=== PATIENT | male | born 1990 | race Caucasian/White ===

== ENCOUNTER → 2016-06-02 | Emergency (ER) | payer MEDICAID ==
[~2016-06-02] VITALS: Ht 180.3 cm; Wt 190.0 kg
[~2016-06-02] MED LIST: AC325T PO; ACET1TAB43 PO; ALBU6.7H IH; ASPI1TAB22 PO; AZIT250T81 PO; BENZ150C4 PO; CELE-63 PO; CODE-54 PO; CPR500T PO; CRV6.25T PO; CYCL10TA45 PO; DULO20CA PO; DULO30CA46 PO; DULO60CA7 PO; GBPN300C PO; HYDR-3702 PO; KETO10TA PO; KETOROLAC 60 MG/2 ML (TORADOL) VIAL IM ONE; LORA1TAB PO; MORP1CAP12 PO; MORP1CAP13 PO; MORP1CAP15 PO; ONDA4TAB8 PO; PANT40TA3 PO; PHEN15CA67 PO; SUMA100T3 PO; TOPI-27 PO; TOPI100T38 PO; TOPI50TA5 PO; TRAZ100T92 PO; ZALE10CA PO
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
--- NOTE | 2016-06-02 14:04 | Diagnostic Imaging Report ---
INDICATION: Right knee pain, no known injury. DISCUSSION: Three views of the right knee were obtained, no comparison. No acute fracture, dislocation, or other osseous abnormality identified. No significant degenerative disease. Alignment is anatomic. Soft tissues are unremarkable. IMPRESSION: 1. Negative right knee. Dictated by: Dictated on workstation # [id number]
[2016-06-02 18:09] VITALS: BP 140/68
== END | disposition home or self-care (01) ==
LOC: EDUNIT# 13:16 → ED 13:19
DX: M25.561 Pain in right knee (principal)
CPT/HCPCS: 73562; 96372; 99282; J1885; 99283

== ENCOUNTER 2016-06-19 17:03 | Emergency (ER) | payer MEDICAID ==
[~2016-06-19] VITALS: Ht 180.3 cm; Wt 186.0 kg
[~2016-06-19 17:03] MED LIST changes: -ALBU6.7H IH; -AZIT250T81 PO; -BENZ150C4 PO; -KETOROLAC 60 MG/2 ML (TORADOL) VIAL IM ONE; -LORA1TAB PO; -MORP1CAP13 PO; -MORP1CAP15 PO; -PHEN15CA67 PO; -SUMA100T3 PO
--- NOTE | 2016-06-19 18:49 | NUR ---
STATES HE ALSO HAS A CHEST COLD W/COUGHING VERY HARD. CL
[2016-06-19 19:25] LABS: BASOPHILS % (AUTO) 0 % (0-2); EOSINOPHILS # (AUTO) 0.3 10^3uL; EOSINOPHILS % (AUTO) 5 % (0-4); LYMPHOCYTES # (AUTO) 2.4 X10^3; MEAN CORPUSCULAR HEMOGLOBIN 27.3 PG (26.0-34.0); MEAN CORPUSCULAR HGB CONC 32.8 g/dL (31.0-37.0); MEAN CORPUSCULAR VOLUME 83 FL (80-100); MEAN PLATELET VOLUME 11.8 FL (6.0-9.5); MONOCYTES # (AUTO) 0.7 X10^3; MONOCYTES % (AUTO) 10 % (3-11); NEUTROPHILS # (AUTO) 3.4 X10^3; NEUTROPHILS % (AUTO) 50 % (51-67); PLATELET COUNT 191 10^3uL (150-450); WHITE BLOOD COUNT 6.85 10^3uL (4.0-11.0)
[2016-06-19 19:36] LABS: ALBUMIN 4.4 g/dL (3.4-5.0); ANION GAP 17.1 MEQ/L (3-15); CALCULATED IONIZED CALCIUM 3.7 mg/dL (3.8-4.6)
[2016-06-19 19:42] LABS: INFLUENZA VIRUS TYPE A ANTIBOD Negative (NEGATIVE); INFLUENZA VIRUS TYPE B ANTIBOD Negative (NEGATIVE)
--- NOTE | 2016-06-19 20:34 | Diagnostic Imaging Report ---
INDICATION: Cough. Comparison with 12/06/2015. FINDINGS: The lungs are well-aerated. There are no infiltrates. No masses. No hilar adenopathy. The heart is upper limits of normal in size. No evidence of pulmonary edema. No pneumothorax or pleural effusion. IMPRESSION: PA and lateral chest with no acute changes when compared with the previous exam. Dictated by: Dictated on workstation # [id number]
[2016-06-19] MEDS ORDERED: AZIT250T81 PO (21:18)
[2016-06-19] MEDS ORDERED: ED- AZITHROMYCIN 250 MG (ZITHROMAX) 3 TABLETS/BTL PO ONE (21:20)
[2016-06-19 21:29] VITALS: BP 138/90
[2016-06-30] MEDS ORDERED: SUMA100T3 PO (00:11)
[2016-06-30] MEDS ORDERED: BENZ150C4 PO (00:11)
[2016-06-30] MEDS ORDERED: ALBU6.7H IH (00:11)
[2016-06-30] MEDS ORDERED: MORP1CAP13 PO (00:11)
== END 2016-06-19 21:30 | disposition home or self-care (01) ==
LOC: ED 17:05
DX: J15.7 Pneumonia due to Mycoplasma pneumoniae (principal); Z87.891 Personal history of nicotine dependence
CPT/HCPCS: 36415; 71020; 80053; 85025; 87400; A9270; 87502; 99282; 99283

== ENCOUNTER 2016-06-29 23:55 | Emergency (ER) | payer MEDICAID ==
[~2016-06-29] VITALS: Ht 180.3 cm; Wt 186.3 kg
--- NOTE | 2016-06-30 00:15 | NUR ---
PT WANTS TO STAY IN W/C D/T BACK PAIN. CALL LIGHT GIVEN TO PT
[2016-06-30] MEDS ORDERED: HYDROmorphone 2 MG/ML (DILAUDID) 1 ML SYRINGE IM ONE (00:50)
[2016-06-30] MEDS ORDERED: ORPHENADRINE 60 MG/2 ML (NORFLEX) AMP IM ONE (00:50)
[2016-06-30] MEDS ORDERED: ED- CYCLOBENZAPRINE 10 MG (FLEXERIL) 3 TABLETS/BTL PO ONE (01:15)
[2016-06-30 01:30] VITALS: BP 107/70
--- NOTE | 2016-06-30 01:30 | NUR ---
norflex and dilaudid were given im so no start/stop times on iv
--- NOTE | 2016-06-30 01:30 | NUR ---
PATIENT SAID TO RN THAT THE PEOPLE THAT HE AND HIS ARE WITH (THEY WERE OUT IN [facility]) HAVE BEEN ASKING HIM FOR TYLENOL WITH CODIENE AND OTHER MEDS. BOTH PT AND REPORT THAT THEY ARE KEEPING THEIR MEDS LOCKED UP AND THAT THEY WILL BE ASKING THESE PEOPLE TO MOVE OUT TOMORROW BECAUSE THEY FILL LIKE THEY ARE BEING TAKEN ADVANTAGE OF. RN ENC THEM THAT IF THEY HAD ANY PROBLEMS TO NOTIFY THE [place] [employer]. THEY REPORT THEY WILL AND HAVE BEFORE. DECLINE ANY REFERRAL AT THIS TIME
== END 2016-06-30 01:39 | disposition home or self-care (01) ==
LOC: ED 23:56
DX: M54.5 Low back pain (principal); M54.89 Other dorsalgia; M79.1 Myalgia
CPT/HCPCS: 96372; 99282; A9270; J1170; J2360

== ENCOUNTER 2016-07-18 00:20 | Emergency (ER) | payer MEDICAID ==
[~2016-07-18] VITALS: Ht 180.3 cm; Wt 182.3 kg
[2016-07-18] MEDS ORDERED: LORazepam 2 MG/ML (ATIVAN) 1 ML VIAL IV ONE (00:35)
[2016-07-18 01:06] LABS: BASOPHILS % (AUTO) 0 % (0-2); EOSINOPHILS # (AUTO) 0.1 10^3uL; EOSINOPHILS % (AUTO) 1 % (0-4); LYMPHOCYTES # (AUTO) 3.2 X10^3; MEAN CORPUSCULAR HEMOGLOBIN 27.8 PG (26.0-34.0); MEAN CORPUSCULAR HGB CONC 33.3 g/dL (31.0-37.0); MEAN CORPUSCULAR VOLUME 84 FL (80-100); MEAN PLATELET VOLUME 12.3 FL (6.0-9.5); MONOCYTES % (AUTO) 10 % (3-11); NEUTROPHILS # (AUTO) 5.5 X10^3; NEUTROPHILS % (AUTO) 56 % (51-67); PLATELET COUNT 203 10^3uL (150-450); WHITE BLOOD COUNT 9.83 10^3uL (4.0-11.0)
[2016-07-18 01:16] LABS: ALBUMIN 4.5 g/dL (3.4-5.0); ANION GAP 16.5 MEQ/L (3-15); CALCULATED IONIZED CALCIUM 3.9 mg/dL (3.8-4.6); TOTAL PROTEIN 8.1 g/dL (6.4-8.5)
[2016-07-18 01:32] LABS: BILIRUBIN,URINE Negative (Negative); CLARITY,URINE Clear; COLOR,URINE Yellow; GLUCOSE, URINE (UA) Negative (Negative); LEUKOCYTE ESTERASE ,URINE Negative (Negative); PH,URINE 5.5 (5.0 - 8.0); UROBILINOGEN,URINE 0.2 mg/dL (0.2-1.0)
[2016-07-18 01:39] LABS: AMPHETAMINE SCREEN, URINE Positive (Negative); CANNABINOID SCREEN, URINE Negative (Negative); METHAMPHETAMINE SCREEN URINE S NEGATIVE (NEGATIVE); OPIATE SCREEN URINE Positive (Negative); PROPOXYPHENE STAT NEGATIVE (NEGATIVE)
--- NOTE | 2016-07-18 02:01 | NUR ---
Assisted patient into wheel chair. He was able to move legs off bed and transfer by himself to the wheel chair. Moved right leg by himself and no weakness to right side noted with transferring from bed to chair or from wheel chair to car. Denies any pain or needs.
[2016-07-18 03:25] VITALS: BP 122/60
== END 2016-07-18 02:03 | disposition home or self-care (01) ==
LOC: ED 00:22
DX: G40.909 Epilepsy, unspecified, not intractable, without status epilepticus (principal)
CPT/HCPCS: 36415; 80053; 81003; 85025; 96374; 99284; G0478; J2060; 80307; 99283

== ENCOUNTER 2016-07-18 13:00 | Outpatient (RCR) | payer MEDICAID ==
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
[~2016-07-18 13:00] MED LIST changes: +ALBU6.7H IH; +AZIT250T81 PO; +BENZ150C4 PO; +MORP1CAP13 PO; +SUMA100T3 PO; -TOPI50TA5 PO; +TOPI50TA86 PO
[2016-07-23] MEDS ORDERED: CYCL10TA45 PO (16:17)
[2016-07-23] MEDS ORDERED: PHEN15CA67 PO (16:17)
[2016-07-23] MEDS ORDERED: LORA1TAB PO (17:22)
[2016-08-18] MEDS ORDERED: MORP1CAP15 PO (20:27)
[2016-09-13] MEDS ORDERED: MORP1CAP16 PO (23:37)
== END 2016-10-06 | disposition home or self-care (01) ==
LOC: PT 13:00
PROVIDERS: ATTEND Family Medicine
DX: M54.5 Low back pain (principal); M25.562 Pain in left knee; M25.561 Pain in right knee

== ENCOUNTER 2016-07-23 15:28 | Emergency (ER) | payer MEDICAID ==
[~2016-07-23] VITALS: Ht 177.8 cm; Wt 178.0 kg
--- NOTE | 2016-07-23 15:45 | NUR ---
PT VERBALIZES HE IS NOT INCONTINENT OF BOWEL OR BLADDER "I DIDN'T PISS MYSELF". CL
[2016-07-23] MEDS ORDERED: LORazepam 2 MG/ML (ATIVAN) 1 ML VIAL IV ONE (16:15)
[2016-07-23 16:21] LABS: BASOPHILS % (AUTO) 0 % (0-2); EOSINOPHILS # (AUTO) 0.1 10^3uL; EOSINOPHILS % (AUTO) 1 % (0-4); LYMPHOCYTES # (AUTO) 2.5 X10^3; MEAN CORPUSCULAR HEMOGLOBIN 27.7 PG (26.0-34.0); MEAN CORPUSCULAR HGB CONC 33.5 g/dL (31.0-37.0); MEAN CORPUSCULAR VOLUME 83 FL (80-100); MEAN PLATELET VOLUME 12.2 FL (6.0-9.5); MONOCYTES # (AUTO) 0.7 X10^3; MONOCYTES % (AUTO) 9 % (3-11); NEUTROPHILS # (AUTO) 4.2 X10^3; NEUTROPHILS % (AUTO) 55 % (51-67); PLATELET COUNT 220 10^3uL (150-450); WHITE BLOOD COUNT 7.52 10^3uL (4.0-11.0)
--- NOTE | 2016-07-23 16:26 | NUR ---
PT BEGINS TO SHAKE WHILE HANDS BILAT REMAIN ON BILAT RAILS BUT DO NOT MOVE WHILE THE REST OF HIS BODY SHAKES GENTLY. SHAKING LASTS APPX [address] CHEW NOTIFIED O2 SATS DID DROP DURING THIS TIME. PT WAS SHAKING SHORTLY AFTER ARRIVAL ALSO IN SIMILAR FASHION FOR APPX 30 SECS BUT NOT INCONTINENT & IMMED ANSWERS QUESTIONS OF THIS RN. O2 SATS DID NOT DROP DURING FIRST EPISODE IN THIS ED. CL
[2016-07-23 16:28] LABS: ALBUMIN 4.2 g/dL (3.4-5.0); ALKALINE PHOSPHATASE 102 U/L (38-126); ANION GAP 17.6 MEQ/L (3-15); BUN/CREATININE RATIO 12 (10-20); CALCULATED IONIZED CALCIUM 4.1 mg/dL (3.8-4.6); TOTAL PROTEIN 7.5 g/dL (6.4-8.5)
--- NOTE | 2016-07-23 17:25 | NUR ---
PT ON SIX COLOR PRESS OPERATOR & WNL HEART RHYTHMS. STRIPS NOT PRINTED BEFORE PT D/C. CL
[2016-07-23 19:23] VITALS: BP 118/36
== END 2016-07-23 17:44 | disposition home or self-care (01) ==
LOC: ED 15:29
DX: G40.802 Other epilepsy, not intractable, without status epilepticus (principal); Z72.820 Sleep deprivation; F41.9 Anxiety disorder, unspecified
CPT/HCPCS: 36415; 70450; 80053; 84443; 85025; 96374; 99285; G0480; J2060; 80320; 80329; 99283

== ENCOUNTER → 2016-07-23 | Outpatient (CLI) | payer MEDICAID | LOC: EMS 15:25 | PROVIDERS: ATTEND Family Medicine | DX: R56.9 Unspecified convulsions (principal) ==

== ENCOUNTER 2016-08-18 19:57 | Emergency (ER) | payer MEDICAID ==
[~2016-08-18] VITALS: Ht 177.8 cm; Wt 175.8 kg
[2016-08-18] MEDS ORDERED: KETOROLAC 60 MG/2 ML (TORADOL) VIAL IM STA (20:38)
[2016-08-18] MEDS ORDERED: METOCLOPRAMIDE 10 MG/2 ML (REGLAN) VIAL IM STA (20:38)
[2016-08-18] MEDS ORDERED: diphenhydrAMINE 50 MG/ML INJ (BENADRYL) IM SCH (20:40)
[2016-08-18 21:15] VITALS: BP 143/66
--- NOTE | 2016-08-18 21:15 | NUR ---
ALL MEDS WERE GIVEN IM SO NO IV START/STOP TIMES
== END 2016-08-18 21:16 | disposition home or self-care (01) ==
LOC: ED 19:58
DX: S00.01XA Abrasion of scalp, initial encounter (principal); W22.8XXA Striking against or struck by other objects, initial encounter; Y92.009 Unspecified place in unspecified non-institutional (private) residence as the place of occurrence of the external cause; G43.909 Migraine, unspecified, not intractable, without status migrainosus
CPT/HCPCS: 96372; 99282; J1200; J1885; J2765

== ENCOUNTER 2016-08-27 17:33 | Emergency (ER) | payer MEDICAID ==
[~2016-08-27] VITALS: Ht 177.8 cm; Wt 177.0 kg
[~2016-08-27 17:33] MED LIST changes: +LORA1TAB PO; +MORP1CAP15 PO; +PHEN15CA67 PO; +TOPI50TA5 PO; -TOPI50TA86 PO
--- NOTE | 2016-08-27 18:15 | NUR ---
PT requesting pain medication. MD notified.
--- NOTE | 2016-08-27 18:40 | Diagnostic Imaging Report ---
KNEE, RIGHT, 3 VIEWS. COMPARISON: None available. INDICATION: Pain around patella. TECHNIQUE: Non-weight bearing AP, oblique, and lateral views of the right knee. FINDINGS: No fracture or traumatic malalignment. The joint spaces are well maintained. No knee joint effusion. Shadow of the patellar tendon appears normal. IMPRESSION: 1. No acute fracture. Specifically, the patella appears intact. Dictated by: Dictated on workstation # [id number]
[2016-08-27] MEDS ORDERED: HYDROmorphone 2 MG/ML (DILAUDID) 1 ML SYRINGE IV ONE (18:50)
[2016-08-27] MEDS: SODIUM CHLORIDE FLUSH 10 ML SYR IV PRN ×2 (19:00→19:02)
--- NOTE | 2016-08-27 19:03 | Diagnostic Imaging Report ---
PROCEDURE: CT right lower extremity without contrast. TECHNIQUE: Axially acquired CT was obtained through the right lower extremity without intravenous contrast. Coronal and sagittal reformations were also performed. INDICATION: Right knee pain. COMPARISON: Knee radiographs performed earlier same day. FINDINGS: The patellar tendon is intact. Quadriceps insertion on the patella is also normal. The ACL and PCL are grossly normal. No evidence of extruded meniscus. No acute fracture. No knee joint effusion. Patella is normal in alignment. Joint spaces of the knee are well maintained. IMPRESSION: 1. The patella tendon and quadriceps tendon are both intact. 2. No acute fracture. Dictated by: Dictated on workstation # [id number]
[2016-08-27 19:51] VITALS: BP 110/56
== END 2016-08-27 19:52 | disposition home or self-care (01) ==
LOC: ED 17:34
DX: M25.561 Pain in right knee (principal)
CPT/HCPCS: 73562; 73700; 96374; 99283; J1170; 99284

== ENCOUNTER 2016-09-03 20:29 | Emergency (ER) | payer MEDICAID ==
[~2016-09-03] VITALS: Ht 177.8 cm; Wt 177.0 kg
[~2016-09-03 20:29] MED LIST changes: -TOPI50TA5 PO; +TOPI50TA86 PO
[2016-09-03] MEDS ORDERED: ONDANSETRON 4 MG (ZOFRAN) ORAL DISSOLVE TAB PO ONE (20:50)
[2016-09-03] MEDS ORDERED: SODIUM CHLORIDE FLUSH 3 ML SYR IV ONE (20:55)
[2016-09-03] MEDS ORDERED: SODIUM CHLORIDE FLUSH 10 ML SYR IV PRN (20:55)
[2016-09-03] MEDS ORDERED: LORazepam 2 MG/ML (ATIVAN) 1 ML VIAL IV ONE (20:55)
[2016-09-03 21:09] LABS: BASOPHILS % (AUTO) 0 % (0-2); EOSINOPHILS # (AUTO) 0.3 10^3uL; EOSINOPHILS % (AUTO) 3 % (0-4); LYMPHOCYTES # (AUTO) 1.2 X10^3; MEAN CORPUSCULAR HEMOGLOBIN 27.2 PG (26.0-34.0); MEAN CORPUSCULAR HGB CONC 32.3 g/dL (31.0-37.0); MEAN CORPUSCULAR VOLUME 84 FL (80-100); MEAN PLATELET VOLUME 11.5 FL (6.0-9.5); MONOCYTES # (AUTO) 0.9 X10^3; MONOCYTES % (AUTO) 11 % (3-11); NEUTROPHILS % (AUTO) 71 % (51-67); PLATELET COUNT 182 10^3uL (150-450)
[2016-09-03] MEDS ORDERED: ONDANSETRON 2 MG/ML (Z0FRAN) 2 ML VIAL IV ONE (21:10)
[2016-09-03 21:23] LABS: ALBUMIN 4.5 g/dL (3.4-5.0); ANION GAP 19.2 MEQ/L (3-15); CALCULATED IONIZED CALCIUM 3.8 mg/dL (3.8-4.6); TOTAL PROTEIN 8.1 g/dL (6.4-8.5)
--- NOTE | 2016-09-03 22:02 | Diagnostic Imaging Report ---
INDICATION: Abdominal pain. EXAMINATION: PA chest and supine and upright abdominal images were obtained. FINDINGS: Lungs are clear. There is no intraperitoneal free air. Bowel gas pattern is normal. There are no pathologic masses or calcifications. IMPRESSION: No acute abnormalities in the abdomen. Dictated by: Dictated on workstation # [id number]
[2016-09-03 22:07] LABS: BILIRUBIN,URINE Negative (Negative); CLARITY,URINE Clear; COLOR,URINE Yellow; GLUCOSE, URINE (UA) Negative (Negative); LEUKOCYTE ESTERASE ,URINE Negative (Negative); UROBILINOGEN,URINE 0.2 mg/dL (0.2-1.0)
[2016-09-03] MEDS ORDERED: ED- PROMETHAZINE/CODEINE SYRUP 6.25MG-10MG/5 ML (PHENERGAN) 118 ML BTL PO ONE (22:25)
[2016-09-03 22:49] VITALS: BP 133/60
[2016-09-04 00:53] LABS: AMPHETAMINE SCREEN, URINE Positive (Negative); CANNABINOID SCREEN, URINE Negative (Negative); METHAMPHETAMINE SCREEN URINE S NEGATIVE (NEGATIVE); OPIATE SCREEN URINE Positive (Negative); PROPOXYPHENE STAT NEGATIVE (NEGATIVE)
== END 2016-09-03 22:10 | disposition home or self-care (01) ==
LOC: ED 20:32
DX: R11.0 Nausea (principal); J06.9 Acute upper respiratory infection, unspecified; G40.509 Epileptic seizures related to external causes, not intractable, without status epilepticus
CPT/HCPCS: 36415; 74022; 80053; 80307; 81003; 82150; 83690; 84443; 85025; 86140; 96361; 96374; 99284; A9270; J2060; J7030; 99283

== ENCOUNTER → 2016-09-12 | Outpatient (CLI) | payer MEDICAID ==
[~2016-09-12] MED LIST changes: +MORP1CAP16 PO
== END ==
LOC: RAD 07:03
PROVIDERS: ATTEND Family Medicine
DX: Z53.9 Procedure and treatment not carried out, unspecified reason (principal)

== ENCOUNTER 2016-09-13 23:11 | Emergency (ER) | payer MEDICAID ==
[~2016-09-13] VITALS: Ht 180.3 cm; Wt 174.5 kg
[~2016-09-13 23:11] MED LIST changes: -MORP1CAP16 PO
[2016-09-13] MEDS ORDERED: MORP1CAP16 PO (23:37)
--- NOTE | 2016-09-13 23:41 | NUR ---
Patient told me, "I'm scared, I don't feel good." Patient's reported, "They usually give him ativan, that calms him down then he also gets his voice back at the same time." Patient only whispering when talking.
[2016-09-13] MEDS ORDERED: LORazepam 2 MG/ML (ATIVAN) 1 ML VIAL IV ONE (23:45)
[2016-09-13 23:57] LABS: BASOPHILS % (AUTO) 0 % (0-2); EOSINOPHILS # (AUTO) 0.1 10^3uL; EOSINOPHILS % (AUTO) 1 % (0-4); LYMPHOCYTES # (AUTO) 2.6 X10^3; MEAN CORPUSCULAR HEMOGLOBIN 27.2 PG (26.0-34.0); MEAN CORPUSCULAR HGB CONC 32.6 g/dL (31.0-37.0); MEAN CORPUSCULAR VOLUME 83 FL (80-100); MEAN PLATELET VOLUME 11.8 FL (6.0-9.5); MONOCYTES # (AUTO) 0.8 X10^3; MONOCYTES % (AUTO) 8 % (3-11); NEUTROPHILS % (AUTO) 67 % (51-67); PLATELET COUNT 240 10^3uL (150-450); WHITE BLOOD COUNT 10.49 10^3uL (4.0-11.0)
--- NOTE | 2016-09-14 00:06 | NUR ---
came out of room and notified us that patient was having another seizure. Pat, household appliances salesperson and myself went in room, body shaking, not violently but lasted approx. 1 min. When patient stopped, I called his name and he jumped like I started him and was looking around the room at every one with a look of fear on his face. Like he was afraid of something.
[2016-09-14 00:11] LABS: ALBUMIN 4.4 g/dL (3.4-5.0); ANION GAP 18.9 MEQ/L (3-15); CALCULATED IONIZED CALCIUM 3.8 mg/dL (3.8-4.6); TOTAL PROTEIN 8.1 g/dL (6.4-8.5)
[2016-09-14] MEDS ORDERED: LORazepam 2 MG/ML (ATIVAN) 1 ML VIAL IV ONE ×3 (00:15→01:10)
[2016-09-14] MEDS ORDERED: ED- LORAZEPAM 0.5 MG (ATIVAN) 6 TABLETS/BTL PO ONE (02:15)
[2016-09-14 03:12] VITALS: BP 127/55
== END 2016-09-14 02:51 | disposition home or self-care (01) ==
LOC: ED 23:16
DX: G40.509 Epileptic seizures related to external causes, not intractable, without status epilepticus (principal)
CPT/HCPCS: 36415; 80053; 85025; 96374; 96375; 99285; A9270; J2060; 99283

== ENCOUNTER → 2016-09-13 | Outpatient (CLI) | payer MEDICAID | LOC: EMS 23:10 | PROVIDERS: ATTEND Emergency Medicine | DX: R56.9 Unspecified convulsions (principal) ==

== ENCOUNTER 2016-09-16 18:26 | Emergency (ER) | payer MEDICAID ==
[~2016-09-16] VITALS: Ht 180.3 cm; Wt 174.5 kg
[~2016-09-16 18:26] MED LIST changes: +MORP1CAP16 PO
[2016-09-16] MEDS ORDERED: HYDROmorphone 2 MG/ML (DILAUDID) 1 ML SYRINGE IM ONE (18:50)
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
[2016-09-16 20:07] VITALS: BP 128/88
== END 2016-09-16 20:06 | disposition home or self-care (01) ==
LOC: ED 18:28
DX: M25.572 Pain in left ankle and joints of left foot (principal)
CPT/HCPCS: 73610; 96372; 99282; J1170

== ENCOUNTER 2016-09-17 17:40 | Emergency (ER) | payer MEDICAID ==
[~2016-09-17] VITALS: Ht 180.3 cm; Wt 178.0 kg
--- NOTE | 2016-09-17 18:15 | NUR ---
Patient reports that he has been drinking alot of power ades, monster drinks. I asked patient, "Do you know that energy drinks are bad for you, especially someone that has seizures?" He stated, "No I didn't" I educated patient how they can effect him and that he should be drinking alot of water. in room for this conversation.
[2016-09-17 18:48] VITALS: BP 138/62
== END 2016-09-17 18:49 | disposition home or self-care (01) ==
LOC: ED 17:41
DX: G40.802 Other epilepsy, not intractable, without status epilepticus (principal)
CPT/HCPCS: 99282; 99284

== ENCOUNTER 2016-10-15 22:23 | Emergency (ER) | payer MEDICAID ==
[~2016-10-15] VITALS: Ht 180.3 cm; Wt 175.0 kg
--- NOTE | 2016-10-15 22:38 | NUR ---
PER PT WAS ABLE TO EAT HAMBURGERS AND HOT DOGS TODAY AND WAS ABLE TO TALK. JUST LOST HIS VOICE WHEN HE GOT HERE
[2016-10-15] MEDS ORDERED: methylPREDNISolone 125 MG (Solu-MEDROL) VIAL IM ONE (23:00)
--- NOTE | 2016-10-15 23:35 | NUR ---
STILL NOT ABLE TO TALK BUT RESP ARE GOOD AND O2 SATS 98-100%
--- NOTE | 2016-10-15 23:36 | NUR ---
SOLUMEDROL WAS GIVEN IM NOT IV
--- NOTE | 2016-10-15 23:51 | NUR ---
PATIENT NOW ABLE TO TALK ANS SAYS FEELS LIKE SWELLING HAS GONE DOWN. IS EATING ICE CHIPS THIS IS SECOND GLASS W/O ANY DIFFICULTY
[2016-10-16] MEDS ORDERED: ED- PREDNISONE 10 MG (DELTASONE) 10 TABLETS/BTL PO ONE (00:35)
[2016-10-16 00:38] VITALS: BP 105/47
--- NOTE | 2016-10-16 06:41 | Diagnostic Imaging Report ---
INDICATION: Cough COMPARISON: None FINDINGS: Two views of the soft tissues of the neck are obtained. The airway appears patent. There is no widening of the prevertebral soft tissues. The lungs appears unremarkable. No acute osseous abnormality is suspected. IMPRESSION: No acute abnormality is demonstrated. Dictated by: Dictated on workstation # [id number]
--- NOTE | 2016-10-16 07:06 | Diagnostic Imaging Report ---
INDICATION: Cough. COMPARISON: 06/19/2016. FINDINGS: Two views of the chest are obtained. Heart size is upper limits of normal but unchanged. There is no central venous congestion. No pneumothorax mediastinal widening or pleural fluid. The lungs are clear. Osseous structures appear unremarkable. IMPRESSION: Negative chest. Dictated by: Dictated on workstation # [id number]
== END 2016-10-16 00:43 | disposition home or self-care (01) ==
LOC: ED 22:24
DX: K20.9 Esophagitis, unspecified (principal)
CPT/HCPCS: 70360; 71020; 96372; 99282; A9270; J2930; 99283

== ENCOUNTER 2016-10-20 22:30 | Emergency (ER) | payer MEDICAID ==
[~2016-10-20] VITALS: Ht 180.3 cm; Wt 172.7 kg
[2016-10-20] MEDS ORDERED: ED- AZITHROMYCIN 250 MG (ZITHROMAX) 3 TABLETS/BTL PO ONE (23:20)
[2016-10-20] MEDS ORDERED: AZIT250T81 PO (23:21)
[2016-10-20 23:49] VITALS: BP 158/75
--- NOTE | 2016-10-21 08:10 | Diagnostic Imaging Report ---
INDICATION: Cough. PA and lateral chest obtained at 11:04 PM and compared to 10/15/2016. Heart is borderline in size. Mediastinal silhouette is unremarkable. Lungs are clear. There is no pneumothorax or pleural fluid. IMPRESSION: Negative chest. Dictated by: Dictated on workstation # [id number]
== END 2016-10-20 23:49 | disposition home or self-care (01) ==
LOC: ED 22:30
DX: J20.9 Acute bronchitis, unspecified (principal); J32.0 Chronic maxillary sinusitis; J32.1 Chronic frontal sinusitis; Z87.891 Personal history of nicotine dependence
CPT/HCPCS: 71020; 99282; A9270; 99283